=== PATIENT | female | born 1985 | race Caucasian/White ===

== ENCOUNTER → 2018-10-17 11:02 | Outpatient (CLI) | payer OTHER, SELFPAY ==
--- NOTE | 2018-10-17 | DI.CT.S_ITS ---
PROCEDURE: CT UE LT WO CON INDICATIONS: Nondisplaced fracture of middle third of navicular TECHNIQUE: Noncontrast 1 mm axial sections acquired through the carpal bones, with coronal and sagittal reformats. COMPARISON: [facility], CR, XR WRIST 3+ VIEWS LEFT, 09/19/2018, 14:40. FINDINGS: Image quality: Diagnostic. Bones: There is a fracture identified that extends through the waist of the scaphoid. The alignment is essentially anatomic. However, there is slight radial deviation of the distal fracture fragment by approximately 1 mm. No bridging callus or definite periosteal reaction is evident. No suspicious osseous lesions or dislocations are identified. There is no widening of the scapholunate or lunotriquetral joint. Image osseous structures are age-appropriate. Soft tissues: Mild soft tissue swelling about the wrist is identified. There are no loculated or treatable fluid collections. No definite soft tissue masses are appreciated. No significant atrophy involving the intrinsic muscles of the wrist are evident. Please note that the ligamentous, tendinous, and cartilaginous structures of the wrist are not adequately evaluated on CT. IMPRESSION: Scaphoid waist fracture with minimal displacement as described. No definite callus. Dictated by: Rosendo Matamoros M.D. on 10/17/2018 at 12:29 Approved by: Rosendo Matamoros M.D. on 10/17/2018 at 12:35
== END ==
PROVIDERS: Visit Provider Orthopaedic Surgery
DX: S62.025A Nondisplaced fracture of middle third of navicular [scaphoid] bone of left wrist, initial encounter for closed fracture (principal)
CPT/HCPCS: 73200

== ENCOUNTER → 2023-02-25 17:12 | Outpatient (CLI) | payer OTHER, MEDICAID, SELFPAY ==
[2023-02-25 18:02] LABS: Add Manual Diff / Slide Review NO; Basophils Absolute Auto 0 /uL (0-100); Basophils Percent Auto 0.3 % (0-2); Eosinophils Absolute Auto 100 /uL (0-450); Eosinophils Percent Auto 1.4 % (2-4); Hematocrit 41.4 % (36-46); Hemoglobin 13.8 g/dL (12.0-16.0); Lymphocytes Absolute Auto 1200 /uL (1100-4500); Mean Corpuscular HGB Conc 33.4 % (30-36); Mean Corpuscular Hemoglobin 28.7 PG (26-34); Mean Corpuscular Volume 85.9 fL (80-100); Monocytes Absolute Auto 400 /uL (0-900); Monocytes Percent Auto 5.8 % (3-14); Neutrophils Absolute Auto 5400 /uL (1500-7000); Neutrophils Percent Auto 75.5 % (50-75); Platelet Count 270 X10^3/uL (150-400); Red Blood Cell Count 4.82 X10^6/uL (4.0-5.2); Red Cell Distribution Width 13.2 % (11.6-14.8); White Blood Cell Count 7.1 X10^3/uL (4.5-11.0)
[2023-02-25 18:11] LABS: Appearance Urine UA CLEAR; Bilirubin Urine UA NEGATIVE (NEGATIVE); Color Urine UA YELLOW; Glucose Urine UA NEGATIVE (Negative); Ketones Urine UA NEGATIVE (NEGATIVE); Leukocyte Esterase Urine UA NEGATIVE (NEGATIVE); Nitrite Urine UA NEGATIVE (Negative); Occult Blood Urine UA NEGATIVE (Negative); Protein Urine UA NEGATIVE (Negative); Urobilinogen Urine UA 0.2 E.U./dL (0.2)
[2023-02-25 19:04] LABS: HCG Quantitative /Beta subunit 13581 mIU/mL
[2023-02-25 19:05] LABS: Free T3, Triiodothyronine Free 3.14 pg/mL (2.77-5.27)
[2023-02-25 19:19] LABS: Thyroid Stimulating Hormone 1.54 uIU/mL (0.47-4.68)
[2023-02-25 19:43] LABS: Urine N gonorrhoeae NOT DETECTED
[2023-02-25 19:50] LABS: Urine Chlamydia NOT DETECTED
[2023-02-26 20:46] LABS: Hepatitis B Surface Antigen NEGATIVE s/c (NEGATIVE)
[2023-02-26 21:01] LABS: HIV 1 & 2 Ab/Ag 4th Gen Combo NEGATIVE (NEGATIVE); Hep C Virus Ab w/Reflex Quant NEGATIVE s/c (NEGATIVE)
[2023-02-27 08:30] LABS: Varicella IgG Antibody 703 index (Immune >165)
[2023-02-27 09:10] LABS: RPR Screen Non Reactive (Non Reactive)
== END ==
PROVIDERS: PCP Family Medicine; Referring Provider Family Medicine; Visit Provider Family Medicine
DX: Z34.01 Encounter for supervision of normal first pregnancy, first trimester (principal)
CPT/HCPCS: 36415; 80055; 81003; 84443; 84481; 84702; 86787; 86803; 86850; 86900; 86901; 87077; 87086; 87389; 87491; 87591

== ENCOUNTER → 2023-02-27 16:13 | Outpatient (CLI) | payer OTHER, MEDICAID, SELFPAY ==
[2023-02-27 18:45] LABS: HCG Quantitative /Beta subunit 16954 mIU/mL
== END ==
PROVIDERS: PCP Family Medicine; Referring Provider Family Medicine; Visit Provider Family Medicine
DX: Z34.80 Encounter for supervision of other normal pregnancy, unspecified trimester (principal)
CPT/HCPCS: 36415; 84702

== ENCOUNTER → 2023-03-15 16:41 | Outpatient (CLI) | payer OTHER, MEDICAID, SELFPAY ==
[2023-03-15 18:53] LABS: HCG Quantitative /Beta subunit 69040 mIU/mL
== END ==
PROVIDERS: PCP Family Medicine; Referring Provider Family Medicine; Visit Provider Family Medicine
DX: O09.90 Supervision of high risk pregnancy, unspecified, unspecified trimester (principal); O09.10 Supervision of pregnancy with history of ectopic pregnancy, unspecified trimester
CPT/HCPCS: 36415; 84702

== ENCOUNTER → 2023-03-18 17:25 | Outpatient (CLI) | payer OTHER, MEDICAID, SELFPAY ==
[2023-03-18 18:57] LABS: HCG Quantitative /Beta subunit 60645 mIU/mL
== END ==
LOC: LAB 17:26
PROVIDERS: PCP Family Medicine; Referring Provider Family Medicine; Visit Provider Family Medicine
DX: O09.90 Supervision of high risk pregnancy, unspecified, unspecified trimester (principal); O09.10 Supervision of pregnancy with history of ectopic pregnancy, unspecified trimester
CPT/HCPCS: 36415; 84702; 87086

== ENCOUNTER 2023-04-06 02:24 | Emergency (ER) | payer OTHER, MEDICAID, SELFPAY ==
--- NOTE | 2023-04-06 02:30 | ED_ITS ---
HPI - General Adult General Chief complaint: Vaginal Bleeding Stated complaint: bleeding miscarrage x5 hours Time Seen by Provider: 04/06/23 02:30 History of Present Illness HPI narrative: 37-year-old at 9 weeks 6 days gestational age with known missed . By March 22 irregular shaped gestational sac and decreasing quantitative HCGs were clear with inevitable. Patient discussed options with her OBGYN and decided to allow natural miscarriage. She has been having cramping over the course of the afternoon and this evening began bleeding that rapidly increased to heavy bleeding with clots. She had significantly increased cramping and passed a golf ball size bit of tissue seemed more than just a clot according to her. She has not having bright red bleeding but is concerned with the amount of overall blood. No fevers, dysuria, chest pain, palpitations, dizziness or near syncope Related Data Home Medications Medication Instructions Recorded Confirmed dextroamphetamine-amphetamine 20 40 mg PO BID ADHD 02/26/23 03/15/23 mg tablet (Adderall) metoprolol succinate 25 mg 25 mg PO DAILY SVT Jenkins-Parkensons 02/26/23 03/15/23 tablet,extended release 24 hr onabotulinumtoxinA 100 unit unit intradermal Wrinkles 02/26/23 03/15/23 solution for injection (Botox) sertraline 100 mg tablet 100 mg PO DAILY Anxiety 02/26/23 03/15/23 Previous Rx's Medication Instructions Recorded vit no.95-ferrous 1 tab PO DAILY #90 tabs 02/25/23 fumarate 28 mg-folic acid 800 mcg tablet ( Multivitamins) Allergies Allergy/AdvReac Type Severity Reaction Status Date / Time morphine AdvReac Intermediate Agitated Verified 03/15/23 15:52 Review of Systems Review of Systems Narrative: Pertinent positive and negative findings as per HPI Patient History Medical History Alcohol abuse Bulimia Abnormal Pap smear of cervix Ectopic Surgical History Status post biopsy of skin [place] teeth extracted History of salpingectomy H/O wrist surgery Family History Father Cardiac arrhythmia Grandfather Heart attack Prostate cancer Aunt Ovarian cancer Uncle Lung disease Brain aneurysm Uncle Heart disease Granddaughter Prostate cancer Mother Hypertension Stillbirth History of recurrent miscarriages Alcoholism Social History marital status: unmarried,living together number of children: 3 household members: significant other and children lives independently: Yes caregiver/support person: Yes housing: house pets and animals: Yes (dog) education level: college occupational status: employed current occupational exposures/hazards: No adi/buddhism: Je[employer] Witness special adi needs: No travel history: over 6 months ago seatbelt use: always helmet use: Yes water heater temp set < 120 deg: Yes working smoke detector in home: Yes fire extinguisher in home: Yes carbon monox detector in home: Yes firearms in home: Yes firearms unloaded and locked: Yes do you feel safe at home: Yes Smoking Status: Never smoker second hand exposure: No alcohol intake: former substance use type: marijuana during the past year weight has: remained stable well-balanced diet: daily or most days daily servings fruits/ve or more times/day caffeine: Yes (aware of 200mg limit) Type(s) of exercise: none Smoking Status: Never smoker Exam Initial Vital Signs Initial Vital Signs: Vital Signs Temperature 97.7 F 04/06/23 02:34 Pulse Rate 73 04/06/23 02:34 Respiratory Rate 16 04/06/23 02:34 Blood Pressure 116/75 04/06/23 02:34 Pulse Oximetry 95 04/06/23 02:34 Oxygen Delivery Method Room Air 04/06/23 02:34 General: Healthy appearing, in moderate pain but no severe distress. Able to give a complete and coherent history. Well-nourished well-developed HEENT: Moist mucous membranes, normal sclera with reactive pupils, Respiratory: Lungs are clear to auscultation, no wheezing no rales no rhonchi. Full and symmetrical air movement Cardiac: Regular rate and rhythm no murmurs no bruits Abdomen: Soft, mild suprapubic tenderness but no rebound or guarding. No flank pain. Genital: Bimanual exam reveals a moderate amount of clot in the vaginal vault. Cervix is approximately 2 cm dilated, soft there does not appear to be any protruding membranes, tissue or mass from the cervix. Skin: Warm and dry, no rashes Neurologic: Grossly neurologically intact with no obvious asymmetries or abnormalities Extremities: No trauma, well perfused Psych: Cooperative, appropriate insight and affect Course Orders Ordered: ED Orders 04/06/23 02:40 Complete Blood Count AUTO DIFF Stat Comprehensive Metabolic Panel Stat Discontinued Medications Sodium Chloride (Normal Saline 0.9%) 1,000 mls @ 1,000 mls/hr IV BOLUS ONE Stop: 04/06/23 03:46 Last Admin: 04/06/23 02:55 Dose: 1,000 mls/hr Documented By: SB Ketorolac Tromethamine (Ketorolac 30 Mg/Ml Vial) 15 mg IV NOW ONE Stop: 04/06/23 02:48 Last Admin: 04/06/23 02:55 Dose: 15 mg Documented By: SB Vital Signs Vital signs: Vital Signs - 8 hr 04/06/23 02:34 Temperature 97.7 F Pulse Rate 73 Respiratory Rate 16 Blood Pressure 116/75 Pulse Oximetry 95 Oxygen Delivery Method Room Air Medical Decision Making Lab Data 04/06/23 02:40 04/06/23 02:40 Labs: Lab Results 04/06/23 Range/Units 02:40 WBC 14.3 H (4.5-11.0) X10^3/uL RBC 4.66 (4.0-5.2) X10^6/uL Hgb 13.5 (12.0-16.0) g/dL Hct 39.8 (36-46) % MCV 85.4 (80-100) fL MCH 29.0 (26-34) PG MCHC 34.0 (30-36) % RDW 12.8 (11.6-14.8) % Plt Count 297 (150-400) X10^3/uL Neut % (Auto) 78.0 H (50-75) % Lymph % (Auto) 13.5 L (25-40) % Gregory % (Auto) 6.8 (3-14) % Eos % (Auto) 1.4 L (2-4) % Baso % (Auto) 0.3 (0-2) % Neut # (Auto) 86892 H (0863-8601) /uL Lymph # (Auto) 1900 (0425-1738) /uL Gregory # (Auto) 1000 H (0-900) /uL Eos # (Auto) 200 (0-450) /uL Baso # (Auto) 0 (0-100) /uL Sodium 136 L (137-145) mmol/L Potassium 3.2 L (3.4-5.1) mmol/L Chloride 99 (98-107) mmol/L Carbon Dioxide 26 (22-32) mmol/L BUN 17 (7-17) mg/dL Creatinine 0.67 (0.52-1.04) mg/dL Estimated GFR > 60 (>60) mL/min BUN/Creatinine Ratio 25.4 H (6-22) Glucose 98 (70-100) mg/dL Calcium 9.5 (8.4-10.2) mg/dL Total Bilirubin 0.5 (0.2-1.3) mg/dL AST 30 (14-36) IU/L ALT 20 (<35) IU/L Alkaline Phosphatase 49 (38-126) U/L Total Protein 8.2 (6.3-8.2) g/dL Albumin 4.5 (3.5-5.0) g/dL Globulin 3.7 (1.7-4.1) g/dL Albumin/Globulin Ratio 1.2 (1.0-2.8) MDM Narrative Medical decision making narrative: CC: Vaginal bleeding, presumed miscarriage Complicating co-morbidities: Known missed for 2 weeks Data collected from: patient Medical records reviewed: OB notes regarding the anticipated miscarriage reviewed Differential considered: Miscarriage, vaginal hemorrhage Exam documented above, pertinent findings include: No acute distress, she is not orthostatic Lab Test results independently reviewed as above. Pertinent findings: CBC shows slight leukocytosis at 14.3 with no evidence of anemia and hemoglobin at 13.5 and 39.8 Chemistries show normal renal function, slightly low potassium at 3.2 otherwise unremarkable Blood type is A-positive, RhoGAM is not required Imaging studies independently reviewed: Bedside transabdominal ultrasound shows nonvascular debris in the uterus with no obvious products of conception appreciated Treatments: Fluids, Toradol Discussion: Patient is noting that the bleeding is continuing to slow. Pain has been adequately controlled. We discussed her normal H&H, also discussed anticipated course of resolution of her current miscarriage. I suspect that the ?golf ball size piece of firm tissue? was in fact products of conception. Ultrasound does not suggest that there is significant vascular component of products left in her uterus but still a modest degree of blood and clot. Discussed likely heavy bleeding for an additional 12-24 hours and then what she would feel like a ?normal. ?after that. Recommended not attempting till she is gone through at least a single cycle and possibly 2 or 3 to allow her body to fully recover from this current miscarriage and allow the emotional repercussions to settle. Did suggest that she continue vitamins if she is considering another . She will follow up with her OBGYN. She is safe for discharge questions are answered. Discharge Plan Departure Patient Disposition: Home Clinical Impression: Miscarriage Instructions: DI for Miscarriage Activity Restrictions/Additional Instructions: Thank you for coming in today I suspect that you are through the worst of your miscarriage. The ultrasound did show some blood and clots still in your uterus but I do not see any additional products of conception. Your bleeding is already beginning to slow. Your blood work did not show signs of significant infection or anemia Using 400 mg of ibuprofen (2 [id number] pills) and 1 Tylenol every 6 hours can be very helpful in controlling pain. For severe pain you can use 400 mg of ibuprofen plus a Percocet. Percocet is a narcotic, can be habit-forming and likely will cause constipation. Please do follow up with your OBGYN. If you find that you are having bright red vaginal bleeding that is filling up more than pad an hour or feeling lightheaded, dizzy or actually passing out you need to return to the emergency department. Prescriptions: No Action PNV cmb#95-ferrous fumarate-FA [ Multivitamins] 28 mg iron- 800 mcg tablet 1 tab PO DAILY Qty: 90 3RF Botox 100 unit recon soln intradermal Patient Comments: My last injection was November 15, forehead and eyes. sertraline 100 mg tablet 100 mg PO DAILY metoprolol succinate 25 mg tablet extended release 24 hr 25 mg PO DAILY Patient Comments: Was not a candidate for an ablation to fix the SVT so prescribed Metoprolol dextroamphetamine-amphetamine [Adderall] 20 mg tablet 40 mg PO BID Patient Comments: My dose is 70mg/daily. Alisa cut to 40mg currently Referrals: Anai Brunner, [Primary Care Provider] - Stand Alone Forms: Patient Portal/API
[2023-04-06 02:34] VITALS: BP 116/75; PULSE 73; RESP 16; TEMP 36.5; O2SAT 95; BMI 22.2
[2023-04-06] MEDS: SODIUM CHLORIDE 0.9% 1,000 ML 1000 ML IV (02:55)
[2023-04-06] MEDS: KETOROLAC 30 MG/ML VIAL 15 MG IV (02:55)
[2023-04-06 02:59] LABS: Add Manual Diff / Slide Review NO; Basophils Absolute Auto 0 /uL (0-100); Basophils Percent Auto 0.3 % (0-2); Eosinophils Absolute Auto 200 /uL (0-450); Eosinophils Percent Auto 1.4 % (2-4); Hematocrit 39.8 % (36-46); Hemoglobin 13.5 g/dL (12.0-16.0); Lymphocytes Absolute Auto 1900 /uL (1100-4500); Lymphocytes Percent Auto 13.5 % (25-40); Mean Corpuscular Volume 85.4 fL (80-100); Monocytes Absolute Auto 1000 /uL (0-900); Monocytes Percent Auto 6.8 % (3-14); Neutrophils Absolute Auto 11200 /uL (1500-7000); Platelet Count 297 X10^3/uL (150-400); Red Blood Cell Count 4.66 X10^6/uL (4.0-5.2); Red Cell Distribution Width 12.8 % (11.6-14.8); White Blood Cell Count 14.3 X10^3/uL (4.5-11.0)
[2023-04-06 03:06] LABS: Alanine Aminotransferase 20 IU/L (<35); Albumin 4.5 g/dL (3.5-5.0); Albumin Globulin Ratio 1.2 (1.0-2.8); Alkaline Phosphatase 49 U/L (38-126); Aspartate Aminotransferase 30 IU/L (14-36); BUN Creatinine Ratio 25.4 (6-22); Bilirubin Total 0.5 mg/dL (0.2-1.3); Blood Urea Nitrogen 17 mg/dL (7-17); Calcium 9.5 mg/dL (8.4-10.2); Carbon Dioxide 26 mmol/L (22-32); Chloride 99 mmol/L (98-107); Estimated Glomerular Filt Rate > 60 mL/min (>60); Globulin 3.7 g/dL (1.7-4.1); Glucose 98 mg/dL (70-100); HEMOLYSIS < 15 (0-50); Potassium 3.2 mmol/L (3.4-5.1); Sodium 136 mmol/L (137-145); Total Protein 8.2 g/dL (6.3-8.2)
[2023-04-06 03:30] VITALS: BP 98/64; PULSE 75; RESP 15; O2SAT 100
[2023-04-06] MEDS: OXYCODONE/APAP 5/325 PREPACK 1 BOTTLE MISC (04:16)
[2023-04-06] MEDS: OXYCODONE/ACETAMINOPHEN 5/325 TABLET 1 TAB PO (04:21)
== END 2023-04-06 04:21 | disposition home or self-care (01) ==
PROVIDERS: Emergency Provider Emergency Medicine; PCP Family Medicine
DX: O03.9 Complete or unspecified spontaneous abortion without complication (principal)
CPT/HCPCS: 36415; 80053; 85025; 96361; 96374; 99284; J1885